=== PATIENT | male | born 1990 | race Two or more races ===

== ENCOUNTER 2019-06-04 17:55 | Emergency (ER) | payer OTHER ==
[~2019-06-04] VITALS: Ht 175.3 cm; Wt 74.8 kg
[2019-06-04 18:10] VITALS: BP 116/76
== END 2019-06-04 18:31 | disposition home or self-care (01) ==
LOC: ER 17:55
DX: S09.8XXA Other specified injuries of head, initial encounter (principal); W01.198A Fall on same level from slipping, tripping and stumbling with subsequent striking against other object, initial encounter; Y93.E1 Activity, personal bathing and showering; Y92.091 Bathroom in other non-institutional residence as the place of occurrence of the external cause; Y99.8 Other external cause status

== ENCOUNTER 2019-11-18 19:31 | Emergency (ER) | payer OTHER ==
[~2019-11-18] VITALS: Ht 175.3 cm; Wt 77.1 kg
[2019-11-18 20:20] VITALS: BP 126/79
== END 2019-11-18 21:33 | disposition home or self-care (01) ==
LOC: ER 19:32
DX: J02.9 Acute pharyngitis, unspecified (principal); F10.10 Alcohol abuse, uncomplicated
CPT/HCPCS: 86403-TC; 87070-TC